=== PATIENT | male | born 1985 | race Caucasian/White ===

== ENCOUNTER 2020-02-11 06:34 | Emergency (ER) | payer OTHER, SELFPAY ==
[2020-02-11 06:38] VITALS: BP 126/83; PULSE 63; RESP 18; TEMP 36.3; O2SAT 99
--- NOTE | 2020-02-11 07:31 | ED.GENADULT ---
HPI - General Adult General Chief complaint: Unspecified Stated complaint: ST Time Seen by Provider: 02/11/20 06:58 History of Present Illness HPI narrative: Patient is a 34-year-old male who presents the ER with concerns of swelling in the back of his throat. Patient reports he awoke from sleep he was having difficulty swallowing and was coughing. He then looked in the back of his mouth and noticed that his uvula was significantly enlarged. Reports some mild sinus congestion but no postnasal drip. She has been without fever/chills/sweats, no body aches, no known sick contacts. Related Data Home Medications Medication Instructions Recorded Confirmed omeprazole 20 mg capsule,delayed 20 mg PO DAILY 08/18/19 release Allergies Allergy/AdvReac Type Severity Reaction Status Date / Time amoxicillin Allergy Unknown Unknown Verified 02/11/20 06:43 clavulanic acid Allergy Unknown Vomiting Verified 02/11/20 06:43 Review of Systems Constitutional: Constitutional: Denies chills, Denies fever(s) and Denies weakness ENT: Reports nasal congestion and Denies sore throat Comments: Uvular swelling Respiratory: Respiratory: Denies cough, Denies dyspnea and Denies wheezing PMFSH Past Medical History Medical History (Updated 02/11/20 @ 07:39 by Clifford Rivero MD) Gastro-esophageal reflux disease without esophagitis Mixed hyperlipidemia Recurrent mild major depressive disorder with anxiety (04/26/19) Surgical History Surgical History (Updated 02/11/20 @ 07:32 by Clifford Rivero MD) H/O knee surgery Family History Family History (Updated 03/02/18 @ 08:28 by DOCTOR UNKNOWN) Mother Family history of blood dyscrasia Father Family history of alcoholism Social History Social History Smoking status: Never smoker Alcohol intake: current Gender identity (if verbalized by the patient): Male Exam Narrative: Exam Narrative: GENERAL: Well-appearing, well-nourished, and in no acute distress. HEAD: Normocephalic, atraumatic. ENT: Mucous membranes moist. Slight pharyngeal erythema without tonsillar hypertrophy or exudate. Uvula midline and slightly edematous with some ruptured capillaries at the base. Lips and tongue normal. NEURO: Alert and oriented x3. PSYCH: Normal mood and affect. Course Course Emergency Course: Strep test negative. Discussed treatment with steroids x 1. D/c. Vital Signs Vital signs: Vital Signs Temperature 97.4 F L 02/11/20 06:38 Pulse Rate 63 02/11/20 06:38 Respiratory Rate 18 02/11/20 06:38 Blood Pressure 126/83 02/11/20 06:38 Pulse Oximetry 99 02/11/20 06:38 Temperature 97.4 F L 02/11/20 06:38 Pulse Rate 63 02/11/20 06:38 Respiratory Rate 18 02/11/20 06:38 Blood Pressure 126/83 02/11/20 06:38 Pulse Oximetry 99 02/11/20 06:38 Medical Decision Making Vital Signs Vital Signs: Vital Signs Temperature 97.4 F L 02/11/20 06:38 Pulse Rate 63 02/11/20 06:38 Respiratory Rate 18 02/11/20 06:38 Blood Pressure 126/83 02/11/20 06:38 Pulse Oximetry 99 02/11/20 06:38 Temperature 97.4 F L 02/11/20 06:38 Pulse Rate 63 02/11/20 06:38 Respiratory Rate 18 02/11/20 06:38 Blood Pressure 126/83 02/11/20 06:38 Pulse Oximetry 99 02/11/20 06:38 Lab Data Labs: Strep Screen Presumptive Negative *(Reference Range: Negative)* Discharge Plan Discharge Clinical Impression: Uvulitis Patient Disposition: Home, Self-Care Condition: Stable Instructions: Uvulitis (ED) Additional Instructions: Return to the ER if you have chest pain or shortness of breath, you cannot keep down food or water, you lose consciousness, you have additional concerns. Prescriptions: No Action omeprazole 20 mg capsule,delayed release(DR/EC) 20 mg PO DAILY RF: 0 sertraline 50 mg tablet 50 mg PO DAILY Qty: 90 RF: 1 clonazepam 1 mg tablet 1 mg PO BID Qty: 60 RF: 2 famotidine 40 mg
[2020-02-11 08:35] VITALS: BP 135/89; PULSE 64; RESP 16; O2SAT 98
== END 2020-02-11 08:36 | disposition home or self-care (01) ==
PROVIDERS: Emergency Provider Emergency Medicine; PCP Internal Medicine
DX: K12.2 Cellulitis and abscess of mouth (principal); K21.9 Gastro-esophageal reflux disease without esophagitis; E78.2 Mixed hyperlipidemia
CPT/HCPCS: 87081; 87880; 99283; J8540

== ENCOUNTER 2020-05-15 13:18 | Emergency (ER) | payer SELFPAY ==
[2020-05-15 14:05] VITALS: BP 128/76; PULSE 66; RESP 15; TEMP 36.6; O2SAT 99
[2020-05-15 14:27] LABS: Basophils Percent Auto 0.5 % (0.2-1.2); Eosinophils Absolute Auto 0.1 K/mm3 (0-0.3); Eosinophils Percent Auto 1.4 % (0-4.4); Hematocrit 47.3 % (42.0-52.0); Hemoglobin 16.4 g/dL (14.0-18.0); Immature Granulocyte Absolute 0.01 K/mm3 (0.00-0.031); Immature Granulocyte Percent A 0.2 % (0-0.5); Lymphocytes Absolute Auto 1.36 K/mm3 (0.9-3.2); Lymphocytes Percent Auto 21.5 % (18.3-44.2); Mean Corpuscular HGB Conc 34.7 g/dl (32-36); Mean Corpuscular Hemoglobin 30.8 pg (26-34); Mean Corpuscular Volume 88.9 fl (80-100); Mean Platelet Volume 10.7 fl (7.4-10.4); Monocytes Absolute Auto 0.4 K/mm3 (0.1-0.6); Monocytes Percent Auto 6.8 % (2.6-8.5); Neutrophils Absolute Auto 4.4 K/mm3 (1.3-6.7); Neutrophils Percent Auto 69.6 % (45.5-73.1); Platelet Count Result 237 k/mm3 (150-375); Red Blood Count 5.32 M/mm3 (4.6-6.20); Red Cell Distribution Width 12.9 % (11.5-14.5); White Blood Count 6.3 K/mm3 (4.5-10.0)
[2020-05-15] MEDS: SODIUM CHLORIDE 0.9% IV 1,000 ML 999 ML IV CONT (14:32)
[2020-05-15] MEDS: FAMOTIDINE 20 MG/2 ML VIAL IV PUSH (14:32)
[2020-05-15] MEDS: ONDANSETRON INJ 4 MG/2 ML VIAL IV PUSH (14:32)
--- NOTE | 2020-05-15 14:33 | ED.GENADULT ---
HPI - General Adult General Chief complaint: Nausea/Vomiting/Diarrhea Stated complaint: N/V/D X1D, ESQUIVEL Time Seen by Provider: 05/15/20 14:15 Source: patient Mode of arrival: ambulatory Limitations: no limitations History of Present Illness HPI narrative: Patient is a 34-year-old male who presents to emergency department for evaluation nausea vomiting diarrhea noting that his just gotten over the same symptoms patient notes subjective fever with chills and sweats states that he took his fever yesterday and did have an elevated temperature patient has not taken anything for his symptoms denies URI symptoms or other complaints and on arrival does not appear to be in any distress Related Data Home Medications Medication Instructions Recorded Confirmed omeprazole 20 mg capsule,delayed 20 mg PO DAILY 08/18/19 release Allergies Allergy/AdvReac Type Severity Reaction Status Date / Time amoxicillin Allergy Unknown Unknown Verified 02/11/20 06:43 clavulanic acid Allergy Unknown Vomiting Verified 02/11/20 06:43 Review of Systems Review of Systems: All systems reviewed & are unremarkable except as noted in HPI and below PMFSH Past Medical History Medical History Gastro-esophageal reflux disease without esophagitis Mixed hyperlipidemia Recurrent mild major depressive disorder with anxiety (04/26/19) Surgical History Surgical History H/O knee surgery Family History Family History (Updated 03/02/18 @ 08:28 by DOCTOR UNKNOWN) Mother Family history of blood dyscrasia Father Family history of alcoholism Social History Social History Smoking status: Never smoker Alcohol intake: current Gender identity (if verbalized by the patient): Male Exam Narrative: Exam Narrative: GENERAL: Well-appearing, well-nourished, and in no acute distress. HEAD: Normocephalic, atraumatic. EYES: PERRLA and EOMI. ENT: Nares clear, no rhinorrhea or epistaxis. Mucous membranes moist. Oropharynx without tonsillar hypertrophy exudate or other lesions. NECK: Supple. No adenopathy or masses. CHEST: Clear to auscultation. No respiratory distress. No wheezes rales or rhonchi HEART: Regular rate and rhythm. No murmur heard. Normal peripheral pulses. ABDOMEN: Soft, nontender, nondistended EXTREMITIES: Normal range of motion. No edema. SKIN: Warm, dry, no rash. NEURO: No focal deficits. Alert and oriented x3. PSYCH: Normal mood and affect. Course Course Emergency Course: Patient in the room at this time in no distress resting comfortably aware of case findings treatment plan and diagnosis agreeing to follow-up as directed Vital Signs Vital signs: Vital Signs Temperature 97.9 F 05/15/20 14:05 Pulse Rate 66 05/15/20 14:05 Respiratory Rate 15 05/15/20 14:05 Blood Pressure 128/76 05/15/20 14:05 Pulse Oximetry 99 05/15/20 14:05 Temperature 97.9 F 05/15/20 14:05 Pulse Rate 70 05/15/20 14:38 Respiratory Rate 15 05/15/20 14:05 Blood Pressure 138/79 05/15/20 14:38 Pulse Oximetry 99 05/15/20 14:05 Medical Decision Making [facility] Narrative Medical decision making narrative: Patient in the room at this time in no distress aware of case findings treatment plan and diagnosis agreeing to follow-up as instructed felt appropriate given the clinical presentation and improvement with medications for discharge home with outpatient therapy and follow-up Vital Signs Vital Signs: Vital Signs Temperature 97.9 F 05/15/20 14:05 Pulse Rate 66 05/15/20 14:05 Respiratory Rate 15 05/15/20 14:05 Blood Pressure 128/76 05/15/20 14:05 Pulse Oximetry 99 05/15/20 14:05 Temperature 97.9 F 05/15/20 14:05 Pulse Rate 70 05/15/20 14:38 Respiratory Rate 15 05/15/20 14:05 Blood Pressure 138/79 05/15/20 14:38 Pulse Oximetry
[2020-05-15 14:35] VITALS: BP 127/60; PULSE 60
[2020-05-15 14:36] VITALS: BP 131/76; PULSE 75
[2020-05-15 14:38] VITALS: BP 138/79; PULSE 70
[2020-05-15 14:44] LABS: Alanine Aminotransferase 36 U/L (4-50); Albumin Level 4.6 g/dL (3.5-5.1); Alkaline Phosphatase 71 U/L (38-126); Anion Gap 11 mmol/L (8-16); Aspartate Amino Transferase 29 U/L (17-59); Bilirubin,Total 0.5 mg/dL (0.2-1.3); Blood Urea Nitrogen 13 mg/dL (9-20); Calcium 9.5 mg/dL (8.4-10.2); Carbon Dioxide 23 mmol/L (22-30); Chloride 105 mmol/L (98-107); Estimated CRCL calculation 111 ml/min; Estimated Glomerular Filt Rate > 60; Glucose 93 mg/dL (75-110); Lipase 79 U/L (23-300); Potassium 3.8 mmol/L (3.4-5.0); Sodium 139 mmol/L (137-145)
[2020-05-15 14:50] LABS: Add Urine Microscopic? YES; Amorphous Sediment Urine Few; Appearance Urine Clear (Clear); Bacteria Urine Trace /hpf; Bilirubin Urine Negative (Negative); Blood Urine Negative (Negative); Color Urine Yellow (Yellow); Glucose Urine UA Negative (Negative); Ketones Urine Trace mg/dL (Negative); Leukocyte Esterase Ur Negative LEU/UL (Negative); Mucus Urine Heavy /lpf; Nitrate Urine Negative (Negative); Protein Urine Negative (Negative); RBC Urine 0-2 /hpf (0-2); Specific Grav Ur 1.026 (1.001-1.035); Squamous Epithelial Cell Urine Rare /hpf (Few); Urobilinogen Urine Negative mg/dL (<2.0); WBC Urine 0-3 /hpf
== END 2020-05-15 17:02 | disposition home or self-care (01) ==
PROVIDERS: Emergency Provider Emergency Medicine; PCP Internal Medicine
DX: R10.9 Unspecified abdominal pain (principal); K21.9 Gastro-esophageal reflux disease without esophagitis; E78.2 Mixed hyperlipidemia
CPT/HCPCS: 36415; 80053; 81001; 83690; 85025; 96361; 96374; 96375; 99284; J0131; J2405; J7030

== ENCOUNTER 2021-03-17 06:42 | Emergency (ER) | payer OTHER, SELFPAY ==
[2021-03-17] VITALS (18 sets, daily range): BP systolic 114–150; BP diastolic 73–97; PULSE 70–102; RESP 12–26; O2SAT 98
--- NOTE | ~2021-03-17 | XR_ITS ---
EXAMINATION: XR chest 1V portable DATE: 03/17/2021 08:07 INDICATION: Cough. TECHNIQUE: A single frontal view of the chest was obtained. COMPARISON: Chest 2 views 10/24/2018, CT abdomen and pelvis 08/30/2018 FINDINGS: The chest demonstrates clear lungs without pneumonia, pleural effusion, or pneumothorax. Th e heart size is normal. IMPRESSION: 1. No acute cardiopulmonary disease. Reviewed, dictated and finalized at location B.
--- NOTE | 2021-03-17 08:33 | ED.URI ---
HPI - URI/Sore Throat General Chief Complaint: Upper Respiratory Infection Stated Complaint: cough, body aches Time Seen by Provider: 03/17/21 07:48 Source: patient Mode of arrival: ambulatory Limitations: no limitations History of Present Illness HPI Narrative: Patient presents sore throat, headache, coughing, shortness of breath, body aches started yesterday at 5 PM, got worse this morning. Patient is not vaccinated for COVID-19. Patient denies any chest pain. Related Data Home Medications Medication Instructions Recorded Confirmed omeprazole 20 mg capsule,delayed 20 mg PO DAILY 08/18/19 release Allergies Allergy/AdvReac Type Severity Reaction Status Date / Time adhesive tape Allergy Rash Verified 03/17/21 06:59 amoxicillin [From Augmentin] Allergy Vomiting Verified 03/17/21 07:00 clavulanic acid Allergy Vomiting Verified 03/17/21 07:00 [From Augmentin] Review of Systems Review of Systems: CONSTITUTIONAL: Denies fever, chills, or sweats. EYES: Denies visual changes, redness, or discharge. ENT: Denies rhinorrhea, congestion, sore throat, or otalgia. CARDIOVASCULAR: Denies chest pain, palpitations, or edema. RESPIRATORY: Denies cough or dyspnea. GASTROINTESTINAL: Denies abdominal pain, nausea, vomiting, or diarrhea. GENITOURINARY: Denies dysuria or hematuria. SKIN: Denies rash or itching. MUSCULOSKELETAL: Denies back pain, joint pain, or myalgia. NEUROLOGIC: Denies headache, numbness, or weakness. PSYCHIATRIC: Denies anxiety or depression. [facility] Past Medical History Medical History Gastro-esophageal reflux disease without esophagitis Mixed hyperlipidemia Recurrent mild major depressive disorder with anxiety (04/26/19) Surgical History Surgical History H/O knee surgery Family History Family History Mother Family history of blood dyscrasia Father Family history of alcoholism Social History Social History Smoking status: Never smoker Alcohol intake: current Gender identity (if verbalized by the patient): Male Exam Narrative: General appearance: Well-developed, well-nourished Skin: Normal color Head: Normocephalic, nontraumatic Eyes: Clear conjunctiva ENT: Oropharynx normal, ears normal, nose normal Neck: Supple, nontender Chest and respiratory: Airway patent, no respiratory distress, no accessory muscle use Heart: Regular rate/rhythm Abdomen: Soft, nontender, no organomegaly, quiet bowel sounds Vascular: Normal peripheral pulses, normal capillary refill. Musculoskeletal: Normal range of motion, nontender back Neurologic: Alert and oriented ?3, GIF[employer] OFFICER is normal as tested, no gross motor deficit Course Course Emergency Course: Stable Vital Signs Vital signs: Vital Signs Pulse Rate 78 03/17/21 06:50 Respiratory Rate 21 H 03/17/21 06:50 Blood Pressure 150/93 H 03/17/21 06:50 Pulse Oximetry 98 03/17/21 06:50 Pulse Rate 80 03/17/21 08:01 Respiratory Rate 19 03/17/21 08:01 Blood Pressure 127/78 03/17/21 08:01 Pulse Oximetry 98 03/17/21 06:50 MDM - URI/Sore Throat MDM Narrative Medical decision making narrative: Upper respiratory viral infection is my concern. Chest x-ray, Covid test ordered. Chest x-ray showed no acute abnormality. Patient will be discharged, should be isolated for the next few days until he get the Covid test result. Differential Diagnosis Differential diagnosis: Likely upper respiratory infection and viral infection Lab Data Labs: Lab Results
[2021-03-17 18:30] LABS: SARS-CoV-2 RNA PCR Positive
== END 2021-03-17 09:10 | disposition home or self-care (01) ==
PROVIDERS: Emergency Provider Emergency Medicine; PCP Internal Medicine
DX: U07.1 COVID-19 (principal); J06.9 Acute upper respiratory infection, unspecified; K21.9 Gastro-esophageal reflux disease without esophagitis; E78.2 Mixed hyperlipidemia
CPT/HCPCS: 71045; 99283; C9803; U0003; U0005

== ENCOUNTER 2021-08-08 02:46 | Emergency (ER) | payer OTHER, SELFPAY ==
--- NOTE | ~2021-08-08 | XR_ITS ---
EXAMINATION: XR chest 2V EXAM DATE: 08/08/2021 03:23 INDICATION: Heart palpitations. TECHNIQUE: Frontal and lateral projections of the chest obtained and reviewed. Comparison is made to prior examination from 03/17/2021. FINDINGS: The lungs are clear. There are no pleural effusions. The cardiomediastinal silhouette is within normal limits. There is no pneumothorax suspected. The bones and soft tissues are unremarkab le. IMPRESSION: No acute cardiopulmonary findings. Reviewed, dictated and finalized at location G. [employer]OCIATE
[2021-08-08 02:50] VITALS: BP 160/78; PULSE 69; RESP 16; TEMP 37.1; O2SAT 100
--- NOTE | 2021-08-08 03:03 | ECG_ITS ---
Measurements Intervals [place] Rate: 53 P: 14 TN: 123 QRS: 9 QRSD: 96 T: 8 QT: 437 QTc: 411 Interpretive Statements SINUS BRADYCARDIA INCOMPLETE RIGHT BUNDLE BRANCH BLOCK BASELINE ARTIFACT- I, II BORDERLINE ECG Electronically Signed On 08-08-2021 6:12:56 [employer]RAFTSM[employer] by Jalen Cheek D.O.
[2021-08-08 03:36] LABS: Basophils Percent Auto 0.2 % (0.2-1.2); Eosinophils Percent Auto 0.3 % (0-4.4); Hematocrit 42.5 % (42.0-52.0); Hemoglobin 14.4 g/dL (14.0-18.0); Immature Granulocyte Absolute 0.04 K/mm3 (0.00-0.031); Immature Granulocyte Percent A 0.4 % (0-0.5); Lymphocytes Percent Auto 14.3 % (18.3-44.2); Mean Corpuscular HGB Conc 33.9 g/dl (32-36); Mean Corpuscular Hemoglobin 31.4 pg (26-34); Mean Corpuscular Volume 92.6 fl (80-100); Mean Platelet Volume 10.4 fl (7.4-10.4); Monocytes Absolute Auto 0.7 K/mm3 (0.1-0.6); Monocytes Percent Auto 7.3 % (2.6-8.5); Neutrophils Percent Auto 77.5 % (45.5-73.1); Platelet Count Result 246 k/mm3 (150-375); Red Blood Count 4.59 M/mm3 (4.6-6.20); White Blood Count 9.1 K/mm3 (4.5-10.0)
[2021-08-08] MEDS: ASPIRIN 81 MG CHEWABLE TABLET 324 MG PO (03:39)
[2021-08-08 03:46] LABS: Partial Thromboplastin Time 27.7 SECONDS (22.3-36.8); Prothrombin Time 12.8 Seconds (11.1-14.7)
[2021-08-08 03:49] LABS: Alanine Aminotransferase 33 U/L (4-50); Albumin Level 4.4 g/dL (3.5-5.1); Alkaline Phosphatase 55 U/L (38-126); Anion Gap 8 mmol/L (8-16); Aspartate Amino Transferase 34 U/L (17-59); Bilirubin,Total 0.4 mg/dL (0.2-1.3); Blood Urea Nitrogen 19 mg/dL (9-20); Calcium 9.4 mg/dL (8.4-10.2); Carbon Dioxide 25 mmol/L (22-30); Chloride 105 mmol/L (98-107); Estimated CRCL calculation 125 ml/min; Estimated Glomerular Filt Rate > 60; Glucose 129 mg/dL (65-110); Lipase 92 U/L (23-300); Potassium 3.5 mmol/L (3.4-5.0); Sodium 138 mmol/L (137-145)
[2021-08-08 04:01] LABS: Troponin I < 0.012 ng/mL (0.000-0.034)
--- NOTE | 2021-08-08 05:53 | ED.GENADULT ---
HPI - General Adult General Chief complaint: Arrhythmia/Palpitations Stated complaint: feeling weird , irregular heart rate Time Seen by Provider: 08/08/21 03:30 History of Present Illness HPI narrative: . The patient reports that he is tolerating his PTD and anxiety and recently had an upper respiratory infection patient states he was started on an albuterol inhaler a steroid taper and Phenergan cough medication. Patient states that afterwards he started to feel jittery and felt as though his heart was beating fast and occasionally felt like it was beating irregular. Patient states that he still continues to have the symptoms upon arrival to the emergency department. The patient denies syncope denies any other complaints. Related Data Home Medications Medication Instructions Recorded Confirmed omeprazole 20 mg capsule,delayed 20 mg PO DAILY 08/18/19 release Allergies Allergy/AdvReac Type Severity Reaction Status Date / Time adhesive tape Allergy Rash Verified 03/17/21 06:59 amoxicillin [From Augmentin] Allergy Vomiting Verified 03/17/21 07:00 clavulanic acid Allergy Vomiting Verified 03/17/21 07:00 [From Augmentin] Review of Systems Review of Systems: A 10 system review of systems was completed on the patient and is negative except for what is stated in the HPI. Nursing and ancillary documentation was reviewed. [facility] Past Medical History Medical History Gastro-esophageal reflux disease without esophagitis Mixed hyperlipidemia Recurrent mild major depressive disorder with anxiety (04/26/19) Surgical History Surgical History H/O knee surgery Family History Family History Mother Family history of blood dyscrasia Father Family history of alcoholism Social History Social History Smoking status: Never smoker Alcohol intake: current Gender identity (if verbalized by the patient): Male Exam Narrative: GENERAL: Well-appearing, well-nourished, and in no acute distress. HEAD: Normocephalic, atraumatic. EYES: PERRLA and EOMI. ENT: Nares clear, no rhinorrhea or epistaxis. Mucous membranes moist. NECK: Supple. CHEST: Clear to auscultation. No respiratory distress. HEART: Regular rate and rhythm. No murmur heard. Normal peripheral pulses. ABDOMEN: Soft, nontender, nondistended, normal active bowel sounds. EXTREMITIES: Normal range of motion. No edema. SKIN: Warm, dry, no rash. NEURO: No focal deficits. Alert and oriented x3. PSYCH: Normal mood and affect. Patient denies suicidal or homicidal ideation Course Course Emergency Course: Chest x-ray shows no evidence of focal infiltrate EKG is sinus bradycardia rate of [address] elevation or ST depression Vital Signs Vital signs: Vital Signs Temperature 37.1 C 08/08/21 02:50 Pulse Rate 69 08/08/21 02:50 Respiratory Rate 16 08/08/21 02:50 Blood Pressure 160/78 H 08/08/21 02:50 Pulse Oximetry 100 08/08/21 02:50 Temperature 37.1 C 08/08/21 02:50 Pulse Rate 69 08/08/21 02:50 Respiratory Rate 16 08/08/21 02:50 Blood Pressure 160/78 H 08/08/21 02:50 Pulse Oximetry 100 08/08/21 02:50 Medical Decision Making Vital Signs Vital Signs: Vital Signs Temperature 37.1 C 08/08/21 02:50 Pulse Rate 69 08/08/21 02:50 Respiratory Rate 16 08/08/21 02:50 Blood Pressure 160/78 H 08/08/21 02:50 Pulse Oximetry 100 08/08/21 02:50 Temperature 37.1 C 08/08/21 02:50 Pulse Rate 69 08/08/21 02:50 Respiratory Rate 16 08/08/21 02:50 Blood Pressure 160/78 H 08/08/21 02:50 Pulse Oximetry 100 08/08/21 02:50 Lab Data Result diagrams: 08/08/21 03:28 08/08/21 03:28 Labs: Lab Results 08/08/21 08/08/21 08/08/21
[2021-08-08 06:13] VITALS: PULSE 59; RESP 18; O2SAT 100
[2021-08-08 06:33] LABS: Troponin I < 0.012 ng/mL (0.000-0.034)
== END 2021-08-08 06:14 | disposition home or self-care (01) ==
PROVIDERS: Emergency Provider Emergency Medicine; PCP Internal Medicine
DX: R00.2 Palpitations (principal); E78.2 Mixed hyperlipidemia; K21.9 Gastro-esophageal reflux disease without esophagitis; I45.10 Unspecified right bundle-branch block; R00.1 Bradycardia, unspecified
CPT/HCPCS: 36415; 71046; 80053; 83690; 84484; 85025; 85610; 85730; 93005; 99284; A9270

== ENCOUNTER 2022-10-03 21:21 | Emergency (ER) | payer BC, SELFPAY ==
--- NOTE | 2022-10-03 21:24 | ECG_ITS ---
Measurements Intervals [place] Rate: 66 P: 15 [place]: 130 QRS: 15 QRSD: 98 T: 29 QT: 416 QTc: 437 Interpretive Statements SINUS RHYTHM INCOMPLETE RIGHT BUNDLE BRANCH BLOCK BASELINE ARTIFACT- I, II, III, AVR, AVL, AVF, V1-V6 BORDERLINE ECG COMPARED TO ECG 08/08/2021 06:07:26 SINUS RHYTHM NOW PRESENT Electronically Signed On 10-04-2022 6:39:26 [employer] by Jalen Cheek D.O.
[2022-10-03 21:25] VITALS: BP 161/86; PULSE 60; RESP 18; TEMP 36.4; O2SAT 100
[2022-10-03 21:50] LABS: Basophils Percent Auto 0.3 % (0.2-1.2); Eosinophils Absolute Auto 0.3 K/mm3 (0-0.3); Eosinophils Percent Auto 3.5 % (0-4.4); Hematocrit 43.9 % (42.0-52.0); Immature Granulocyte Absolute 0.03 K/mm3 (0.00-0.031); Immature Granulocyte Percent A 0.3 % (0-0.5); Lymphocytes Absolute Auto 1.89 K/mm3 (0.9-3.2); Lymphocytes Percent Auto 21.3 % (18.3-44.2); Mean Corpuscular HGB Conc 34.2 g/dl (32-36); Mean Corpuscular Hemoglobin 31.2 pg (26-34); Mean Corpuscular Volume 91.3 fl (80-100); Mean Platelet Volume 10.4 fl (7.4-10.4); Monocytes Absolute Auto 0.6 K/mm3 (0.1-0.6); Monocytes Percent Auto 6.5 % (2.6-8.5); Neutrophils Percent Auto 68.1 % (45.5-73.1); Platelet Count Result 280 k/mm3 (150-375); Red Blood Count 4.81 M/mm3 (4.6-6.20); Red Cell Distribution Width 13.2 % (11.5-14.5); White Blood Count 8.9 K/mm3 (4.5-10.0)
[2022-10-03 22:08] LABS: Prothrombin Time 13.1 Seconds (11.1-14.7)
[2022-10-03 22:09] LABS: Partial Thromboplastin Time 28.3 SECONDS (22.3-36.8)
[2022-10-03 22:11] LABS: Alanine Aminotransferase 39 U/L (6-50); Albumin Level 4.7 g/dL (3.5-5.1); Alkaline Phosphatase 73 U/L (38-126); Anion Gap 8 mmol/L (8-16); Aspartate Amino Transferase 31 U/L (17-59); Bilirubin,Total 0.5 mg/dL (0.2-1.3); Blood Urea Nitrogen 12 mg/dL (9-20); Carbon Dioxide 23 mmol/L (22-30); Chloride 104 mmol/L (98-107); Estimated CRCL calculation 119 ml/min; Estimated Glomerular Filt Rate > 60; Glucose 104 mg/dL (65-110); Lipase 171 U/L (23-300); Potassium 3.8 mmol/L (3.4-5.0); Sodium 135 mmol/L (137-145)
[2022-10-03 22:20] LABS: Troponin I < 0.012 ng/mL (0.000-0.034)
--- NOTE | 2022-10-03 22:59 | PC.NURSE ---
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 Patient alert and ambulatory upon leaving the ED.
== END 2022-10-03 22:59 | disposition left against medical advice (07) ==
PROVIDERS: Emergency Provider Emergency Medicine; PCP Family Medicine
DX: R07.9 Chest pain, unspecified (principal)
CPT/HCPCS: 36415; 80053; 83690; 84484; 85025; 85610; 85730; 93005; 99199

== ENCOUNTER 2023-04-01 17:00 | Emergency (ER) | payer OTHER, SELFPAY ==
--- NOTE | ~2023-04-01 | CT_ITS ---
EXAMINATION: CT thoracic spine wo con DATE: 04/01/2023 21:02 INDICATION: Mid back pain. TECHNIQUE: Computed tomography (CT) of the thoracic spine was performed without intravenous contrast. Automated exposure control and iterative reconstruction technique were employed. The dose-length pro duct was 1475.15 mGy-cm. COMPARISON: Chest 2 views 08/08/21 FINDINGS: There is a small sliding hiatal hernia. There is kyphosis of thoracic spine. There is mild chronic anterior wedging of T5-T8 vertebral bodies. There is mildly decreased disc height at T7-T8. T here is multilevel mild facet joint osteoarthritis. No neural foraminal stenosis. There is mild centr al canal stenosis at T7-T8 and T8-T9. IMPRESSION: 1. Mild thoracic spondylosis. Reviewed, dictated and finalized at location E.
--- NOTE | ~2023-04-01 | CT_ITS ---
EXAMINATION: CT abd pelvis lumbar w con DATE: 04/01/2023 21:03 INDICATION: Right abdominal pain. Back pain. TECHNIQUE: Computed tomography (CT) of the abdomen and pelvis and lumbar spine was performed with 100 mL Omnipaque 350 intravenous contrast. Automated exposure control and iterative reconstruction techn ique were employed. The dose-length product was 1379.64 mGy-cm. COMPARISON: CT abdomen and pelvis 08/30/2018 FINDINGS: CT ABDOMEN AND PELVIS: The visualized portions of the lung bases demonstrate minimal atelectasis. No pleural effusion. The heart size is normal. No pericardial effusion. There is a small sliding hiatal hernia. There is a 6 mm cyst in the liver. The gallbladder, spleen, pancreas, adrenal glands, and kid neys are normal. There are no dilated loops of bowel. The appendix is normal. There is a left inguina l hernia containing fat. CT LUMBAR SPINE: Bone alignment is normal. Vertebral body heights are normal. There is mildly decreas ed disc height at L5-S1. The following disc levels are specifically discussed: L1-L2: The disc does not extend beyond the endplate margin. There is mild bilateral facet joint osteo arthritis. There is no neural foraminal stenosis. There is no central canal stenosis. L2-L3: The disc does not extend beyond the endplate margin. There is mild right facet joint osteoarth ritis. There is no neural foraminal stenosis. There is no central canal stenosis. L3-L4: The disc is mildly bulging. There is moderate right and mild left facet joint osteoarthritis. There is no neural foraminal stenosis. There is mild central canal stenosis. L4-L5: The disc is bulging. There is moderate bilateral facet joint osteoarthritis. There is mild bipin ateral neural foraminal stenosis. There is mild central canal stenosis. L5-S1: The disc is bulging. There is mild bilateral facet joint osteoarthritis. There is mild bilater al neural foraminal stenosis. There is mild central canal stenosis. IMPRESSION: 1. Small sliding hiatal hernia. 2. Mild lumbar spondylosis. Reviewed, dictated and finalized at location E.
[2023-04-01 17:02] VITALS: BP 157/87; PULSE 70; RESP 20; TEMP 36.3; O2SAT 98
--- NOTE | 2023-04-01 20:05 | ED.BACK ---
HPI - Back Pain/Injury General Chief Complaint: Back Pain/Injury Stated Complaint: back pain Time Seen by Provider: 04/01/23 19:47 History of Present Illness HPI Narrative: Patient is a 37-year-old male with a history of anxiety, GERD, depression presenting with back pain. Patient states that he was moving a heavy dresser about 5 days ago and shortly after this one of his dogs ran into him and made him fall. States that he had some back discomfort following this but it did not become exquisitely painful until 2-3 nights ago. States that he is almost unable to even change positions because it hurts so bad. States that it is in his mid back somewhat to the right side and sometimes radiates into his abdomen. No numbness or weakness, bladder or bowel incontinence, saddle anesthesia, fevers. Denies nausea or vomiting, diarrhea, dysuria, hematuria. Denies further complaints. Related Data Home Medications Medication Instructions Recorded Confirmed omeprazole 20 mg capsule,delayed 20 mg PO DAILY 08/18/19 release Allergies Allergy/AdvReac Type Severity Reaction Status Date / Time adhesive tape Allergy Rash Verified 04/01/23 19:31 amoxicillin [From Augmentin] Allergy Vomiting Verified 04/01/23 19:31 clavulanic acid Allergy Vomiting Verified 04/01/23 19:31 [From Augmentin] Review of Systems Review of Systems: All systems reviewed & are unremarkable except as noted in HPI and below PMFSH Past Medical History Medical History Gastro-esophageal reflux disease without esophagitis Mixed hyperlipidemia Recurrent mild major depressive disorder with anxiety (04/26/19) Surgical History Surgical History H/O knee surgery Family History Family History Mother Family history of blood dyscrasia Father Family history of alcoholism Social History Social History Smoking status: Never smoker Alcohol intake: current Gender identity (if verbalized by the patient): Male Exam Narrative: GENERAL: Well-appearing, appears very uncomfortable with positional changes HEAD: Normocephalic, atraumatic. EYES: PERRLA and EOMI. ENT: Nares clear, no rhinorrhea or epistaxis. Mucous membranes moist. NECK: Supple. CHEST: Clear to auscultation. No respiratory distress. HEART: Regular rate and rhythm. No murmur heard. ABDOMEN: Soft, + mild right upper quadrant tenderness without guarding or rebound BACK: Midline tenderness of upper lumbar spine that radiates into his right flank/buttock EXTREMITIES: Normal range of motion. No edema. SKIN: Warm, dry, no rash. NEURO: No focal deficits. Alert and oriented x3. PSYCH: Normal mood and affect. Course Vital Signs Vital signs: Vital Signs Temperature 97.4 F L 04/01/23 17:02 Pulse Rate 70 04/01/23 17:02 Respiratory Rate 20 04/01/23 17:02 Blood Pressure 157/87 H 04/01/23 17:02 Pulse Oximetry 98 04/01/23 17:02 Oxygen Delivery Room Air 04/01/23 17:02 Temperature 97.7 F 04/01/23 23:10 Pulse Rate 57 L 04/01/23 23:10 Respiratory Rate 20 04/01/23 17:02 Blood Pressure 121/78 04/01/23 23:10 Pulse Oximetry 99 04/01/23 23:10 Oxygen Delivery Room Air 04/01/23 17:02 MDM - Back Pain/Injury MDM Narrative Medical decision making narrative: Patient is a 37-year-old male presenting with back and abdominal pain. Vitals are stable. Exam remarkable for the above. Plan for blood work, UA, CT abdomen pelvis with thoracic and lumbar spine. Blood work is unremarkable. UA is unremarkable. Imaging shows no acute abnormalities. There is evidence of thoracic and lumbar spondylosis as well as several bulging disks. On reevaluation, patient is resting comfortably. States that his pain has significantly improved. Discussed the reassur
[2023-04-01] MEDS: HYDROmorphone HCL INJ (*CRX) 1 MG/ML SYR 0.5 MG IV PUSH (20:25)
[2023-04-01] MEDS: SODIUM CHLORIDE 0.9% IV 1,000 ML 999 ML IV CONT (20:25)
[2023-04-01] MEDS: KETOROLAC 15 MG/ML VIAL (*BKC) IV PUSH (20:26)
[2023-04-01 20:28] LABS: Basophils Percent Auto 0.3 % (0.2-1.2); Eosinophils Absolute Auto 0.3 K/mm3 (0-0.3); Eosinophils Percent Auto 3.2 % (0-4.4); Hematocrit 45.4 % (42.0-52.0); Hemoglobin 15.6 g/dL (14.0-18.0); Immature Granulocyte Absolute 0.02 K/mm3 (0.00-0.031); Immature Granulocyte Percent A 0.3 % (0-0.5); Lymphocytes Absolute Auto 1.66 K/mm3 (0.9-3.2); Lymphocytes Percent Auto 21.4 % (18.3-44.2); Mean Corpuscular HGB Conc 34.4 g/dl (32-36); Mean Corpuscular Volume 90.1 fl (80-100); Mean Platelet Volume 10.6 fl (7.4-10.4); Monocytes Absolute Auto 0.5 K/mm3 (0.1-0.6); Monocytes Percent Auto 6.8 % (2.6-8.5); Neutrophils Absolute Auto 5.3 K/mm3 (1.3-6.7); Platelet Count Result 250 k/mm3 (150-375); Red Blood Count 5.04 M/mm3 (4.6-6.20); Red Cell Distribution Width 13.1 % (11.5-14.5); White Blood Count 7.8 K/mm3 (4.5-10.0)
[2023-04-01 20:43] LABS: Alanine Aminotransferase 44 U/L (6-50); Albumin Level 4.5 g/dL (3.5-5.1); Alkaline Phosphatase 57 U/L (38-126); Anion Gap 10 mmol/L (8-16); Aspartate Amino Transferase 36 U/L (17-59); Bilirubin,Total 0.5 mg/dL (0.2-1.3); Blood Urea Nitrogen 12 mg/dL (9-20); Calcium 9.1 mg/dL (8.4-10.2); Carbon Dioxide 24 mmol/L (22-30); Chloride 104 mmol/L (98-107); Estimated CRCL calculation 125 ml/min; Estimated Glomerular Filt Rate > 60; Glucose 88 mg/dL (65-110); Lipase 123 U/L (23-300); Potassium 4.1 mmol/L (3.4-5.0); Sodium 138 mmol/L (137-145)
[2023-04-01 20:55] LABS: Appearance Urine Clear (Clear); Bilirubin Urine Negative (Negative); Blood Urine Negative (Negative); Color Urine Yellow (Yellow); Glucose Urine UA Negative (Negative); Ketones Urine Negative (Negative); Leukocyte Esterase Ur Negative LEU/UL (Negative); Nitrate Urine Negative (Negative); Protein Urine Negative (Negative); Urobilinogen Urine 0.2 mg/dL (<2.0); pH Urine 5.5 (5.0-9.0)
[2023-04-01 21:05] LABS: Add Urine Microscopic? NO
[2023-04-01] MEDS: predniSONE 20 MG TABLET 40 MG PO (22:59)
[2023-04-01 23:10] VITALS: BP 121/78; PULSE 57; TEMP 36.5; O2SAT 99
== END 2023-04-01 23:18 | disposition home or self-care (01) ==
PROVIDERS: Emergency Provider Emergency Medicine; PCP Family Medicine
DX: S39.012A Strain of muscle, fascia and tendon of lower back, initial encounter (principal); M47.26 Other spondylosis with radiculopathy, lumbar region; K21.9 Gastro-esophageal reflux disease without esophagitis; E78.2 Mixed hyperlipidemia; F41.8 Other specified anxiety disorders; M47.814 Spondylosis without myelopathy or radiculopathy, thoracic region; K44.9 Diaphragmatic hernia without obstruction or gangrene; W54.1XXA Struck by dog, initial encounter
CPT/HCPCS: 36415; 72128; 72132; 74177; 80053; 81003; 83690; 85025; 96361; 96374; 96375; 99284; J1170; J1885; J7030; J7512; Q9967

== ENCOUNTER 2023-04-23 15:08 | Emergency (ER) | payer OTHER, SELFPAY ==
[2023-04-23] VITALS (10 sets, daily range): BP systolic 108–132; BP diastolic 75–87; PULSE 59–71; RESP 16–18; TEMP 36.9; O2SAT 95–100
--- NOTE | ~2023-04-23 | XR_ITS ---
EXAMINATION: XR chest 1V portable INDICATION: Chest and abdominal pain TECHNIQUE: Portable AP chest at 1532 hours COMPARISON: 08/08/2021 FINDINGS: The lungs are free of acute opacities. No pleural effusion or pneumothorax. The cardiomedia stinal silhouette is normal. IMPRESSION: 1. No acute cardiopulmonary abnormality. Reviewed, dictated and finalized at location B.
--- NOTE | 2023-04-23 15:15 | ECG_ITS ---
Measurements Intervals [place] Rate: 75 P: 23 [place]: 154 QRS: 6 QRSD: 100 T: 12 QT: 391 QTc: 437 Interpretive Statements SINUS RHYTHM CONSIDER INFERIOR INFARCT, AGE INDETERMINATE ABNORMAL ECG COMPARED TO ECG 10/03/2022 21:34:19 MYOCARDIAL INFARCT FINDING NOW PRESENT Electronically Signed On 04-23-2023 15:39:23 CDT by Jalen Cheek D.O.
[2023-04-23 15:35] LABS: Hematocrit 42.8 % (40.0-54.0); Hemoglobin 14.7 g/dL (14.0-18.0); Mean Corpuscular HGB Conc 34.3 g/dL (32.0-36.0); Mean Corpuscular Hemoglobin 30.8 pg (27.0-31.0); Mean Corpuscular Volume 89.5 fL (78.0-102.0); Mean Platelet Volume 10.2 fl (8.7-11.0); Platelet Count Result 242 K/mm3 (150-420); Red Blood Count 4.78 M/mm3 (4.70-6.10); Red Cell Distribution Width 12.8 % (11.6-14.4); White Blood Count 6.9 K/mm3 (4.8-10.8)
[2023-04-23 15:48] LABS: D Dimer 0.19 mg/L (0.19-0.50); Partial Thromboplastin Time 27.1 SEC (23.90-30.70); Prothrombin Time 10.8 Seconds (9.50-12.10)
--- NOTE | 2023-04-23 15:55 | PC.NURSE ---
erp at bedside of initial assessment
[2023-04-23 16:04] LABS: Amphetamine Screen Urine Negative (Negative); Barbiturate Screen Urine Negative (Negative); Benzodiazepines Screen Urine Negative (Negative); Cannabinoid Screen Urine Negative (Negative); Cocaine Screen Urine Negative (Negative); Methadone Screen Urine Negative (Negative); Opiate Screen Urine Negative (Negative); Phencyclidine Screen Urine Negative (Negative)
[2023-04-23 16:06] LABS: Alanine Aminotransferase 41 U/L (16-63); Alkaline Phosphatase 58 U/L (46-116); Anion Gap 13 mmol/L (8-16); Aspartate Amino Transferase 16 U/L (15-37); Bilirubin,Total 0.4 mg/dL (0.00-1.00); Blood Urea Nitrogen 13 mg/dL (7-18); Calcium 9.7 mg/dL (8.5-10.1); Carbon Dioxide 23 mmol/L (21-32); Chloride 104 mmol/L (98-108); Estimated Glomerular Filt Rate > 60; Glucose 94 mg/dL (70-99); Magnesium 2.2 mg/dL (1.8-2.4); Osmolality Calculated 290 mOsm/kg (285-295); Potassium 3.5 mmol/L (3.5-5.1); Sodium 140 mmol/L (136-145); Total Protein 7.5 g/dL (6.4-8.2)
[2023-04-23 16:07] LABS: Ethanol < 3 mg/dL (0-6); Troponin I < 4.0 ng/L (0.00-60.4)
--- NOTE | 2023-04-23 16:07 | ED.CHESTPAIN ---
HPI - Chest Pain General Chief Complaint: Chest Pain Stated Complaint: sore throat Time Seen by Provider: 04/23/23 15:18 Source: patient Mode of arrival: ambulatory Limitations: no limitations History of Present Illness HPI narrative: patient is a 37-year-old white male said he has been up for the last 22 hours he has been tired is driving from [place] starting at 11:15 a.m. today to [facility] where he lives. Said he felt his tongue started to swell is glands felt tender in his throat he knows the yellow spot on left side of his tongue which is uncomfortable. About 45 minutes ago he started having difficulty breathing and swallowing and sharp achy chest pain especially with deep breath his pain was at its worse was a 7/10 and here in the emergency was 6 to 7/10. Is better if he laid back worse if he laid forward. Is also having some abdominal cramping and then he started having tunnel vision felt lightheaded and pulled over and the exit to come to this emergency department. He worked from 8:00 p.m. yesterday to 9:45 a.m. and then went to the hotel and then started for home. Two days ago he had a little bit of diarrhea loose watery nonbloody stools today it is just a little loose. denies any other complaints. Event a lot of people sick where he works. Denies any rash or itching bleeding or bruising lumps or bumps or swelling anywhere fever. He last ate at 10:15 a.m. no problems voiding. Past medical history: Posttraumatic stress disorder 10 years ago diagnose he has been doing very well and has been gradually able to decrease his medications he has got a good psychiatrist and therapist. He is net had any issues with his posttraumatic stress disorder for 3 years. Does not think this is part of that illness. He has history of GERD seasonal allergies past surgical history:he has had bilateral ACL repairs Allergies: Augmentin causes vomiting Related Data Home Medications Medication Instructions Recorded Confirmed omeprazole 20 mg capsule,delayed 20 mg PO DAILY 08/18/19 04/23/23 release Allergies Allergy/AdvReac Type Severity Reaction Status Date / Time adhesive tape Allergy Rash Verified 04/23/23 15:42 amoxicillin [From Augmentin] Allergy Vomiting Verified 04/23/23 15:42 clavulanic acid Allergy Vomiting Verified 04/23/23 15:42 [From Augmentin] Review of Systems Review of Systems: All systems reviewed & are unremarkable except as noted in HPI and below PMFSH Past Medical History Medical History Gastro-esophageal reflux disease without esophagitis Mixed hyperlipidemia Recurrent mild major depressive disorder with anxiety (04/26/19) Surgical History Surgical History H/O knee surgery Family History Family History Mother Family history of blood dyscrasia Father Family history of alcoholism Social History Social History Smoking status: Never smoker Alcohol intake: current Gender identity (if verbalized by the patient): Male Exam Narrative: White Male patient no apparent distress.? Head normocephalic, atraumatic.? Eyes conjunctiva pink sclera nonicteric.? Extraocular movements are intact.? Ears externally normal.? TMs normal Oropharynx is clear with moist mucous membranes without exudates.? tongue: No swelling he has a little irregularity the left side of his tongue looks like he bit his tongue. posterior pharynx is normal without exudates or erythema or swelling. There is no bleeding. Neck is supple Mild tender anterior lymphadenopathy.? Back is nontender.? Lungs are clear.? Heart is regular rate and rhythm without murmurs gallops or rubs.? Chest wall is nontender.? Abdomen is soft and nontender no hepatosplenomegaly or masses no CVA tenderness no abdo
[2023-04-23] MEDS: ACETAMINOPHEN 500 MG TABLET 1000 MG PO (16:16)
[2023-04-23 16:55] LABS: Strep Group A RT-PCR NOT DETECTED (Negative)
[2023-04-23 17:04] LABS: Influenza A QL RT-PCR Negative (Negative); Influenza B QL RT-PCR Negative (Negative); SARS-CoV-2 RNA PCR Negative (Negative)
[2023-04-23 17:05] LABS: RSV RNA, RT-PCR Negative (Negative)
[2023-04-23 18:03] LABS: Troponin I < 4.0 ng/L (0.00-60.4)
== END 2023-04-23 18:32 | disposition home or self-care (01) ==
PROVIDERS: Emergency Provider Emergency Medicine
DX: R07.89 Other chest pain (principal); R06.00 Dyspnea, unspecified; E78.2 Mixed hyperlipidemia; Z20.822 Contact with and (suspected) exposure to COVID-19; Z79.899 Other long term (current) drug therapy
CPT/HCPCS: 36415; 71045; 80053; 80307; 83605; 83735; 84484; 85027; 85380; 85610; 85730; 87637; 87651; 93005; 99284

== ENCOUNTER 2023-11-04 02:34 | Emergency (ER) | payer OTHER, SELFPAY ==
[2023-11-04 02:38] VITALS: BP 118/77; PULSE 102; RESP 15; TEMP 36.6; O2SAT 100
[2023-11-04 03:01] LABS: Basophils Percent Auto 0.1 % (0.2-1.2); Hematocrit 49.2 % (42.0-52.0); Hemoglobin 16.9 g/dL (14.0-18.0); Immature Granulocyte Absolute 0.04 K/mm3 (0.00-0.031); Immature Granulocyte Percent A 0.4 % (0-0.5); Lymphocytes Absolute Auto 0.47 K/mm3 (0.9-3.2); Lymphocytes Percent Auto 5.3 % (18.3-44.2); Mean Corpuscular HGB Conc 34.3 g/dl (32-36); Mean Corpuscular Hemoglobin 30.5 pg (26-34); Mean Corpuscular Volume 88.8 fl (80-100); Mean Platelet Volume 10.9 fl (7.4-10.4); Monocytes Absolute Auto 0.6 K/mm3 (0.1-0.6); Monocytes Percent Auto 6.4 % (2.6-8.5); Neutrophils Absolute Auto 7.8 K/mm3 (1.3-6.7); Neutrophils Percent Auto 87.8 % (45.5-73.1); Platelet Count Result 243 k/mm3 (150-375); Red Blood Count 5.54 M/mm3 (4.6-6.20); Red Cell Distribution Width 13.5 % (11.5-14.5); White Blood Count 8.9 K/mm3 (4.5-10.0)
[2023-11-04 03:17] LABS: Alanine Aminotransferase 33 U/L (6-50); Albumin Level 4.8 g/dL (3.5-5.1); Alkaline Phosphatase 60 U/L (38-126); Anion Gap 11 mmol/L (4-12); Aspartate Amino Transferase 28 U/L (17-59); Bilirubin,Total 1.1 mg/dL (0.2-1.3); Blood Urea Nitrogen 27 mg/dL (9-20); Calcium 9.7 mg/dL (8.4-10.2); Carbon Dioxide 23 mmol/L (22-30); Chloride 103 mmol/L (98-107); Estimated CRCL calculation 70 ml/min; Estimated Glomerular Filt Rate 49; Glucose 120 mg/dL (65-110); Lipase 62 U/L (23-300); Potassium 3.6 mmol/L (3.4-5.0); Sodium 137 mmol/L (137-145)
[2023-11-04] MEDS: ONDANSETRON INJ 4 MG/2 ML VIAL IV PUSH (03:28)
[2023-11-04] MEDS: SODIUM CHLORIDE 0.9% IV 1,000 ML 999 ML IV CONT ×2 (03:28→04:01)
[2023-11-04 03:36] LABS: Influenza A QL RT-PCR Negative (Negative); Influenza B QL RT-PCR Negative (Negative); RSV RNA, RT-PCR Negative (Negative); SARS-CoV-2 RNA PCR Negative (Negative)
--- NOTE | 2023-11-04 03:41 | ED.GENADULT ---
HPI - General Adult General Chief complaint: Nausea/Vomiting/Diarrhea Stated complaint: n/v/d, abdominal cramps, bodyaches Time Seen by Provider: 11/04/23 03:23 History of Present Illness HPI narrative: Patient is a 38-year-old male who presents the emergency department this morning complaining of nausea, vomiting and diarrhea. Patient states that symptoms started approximately 24 hours ago. Patient also states that his had similar symptoms last week and is getting over whenever he now has. They deny any exposure to sick contacts but admitted that they were are large family gathering for [employer] this past Wednesday. Patient currently denies any severe abdominal pain, states that he only has some mild cramping, denies any urinary symptoms including dysuria or hematuria. Patient denies any fevers or chills at home. There are no other modifying, alleviating, or precipitating factors. Related Data Home Medications Medication Instructions Recorded Confirmed omeprazole 20 mg capsule,delayed 20 mg PO DAILY 08/18/19 04/23/23 release Allergies Allergy/AdvReac Type Severity Reaction Status Date / Time adhesive tape Allergy Rash Verified 04/23/23 15:42 amoxicillin [From Augmentin] Allergy Vomiting Verified 04/23/23 15:42 clavulanic acid Allergy Vomiting Verified 04/23/23 15:42 [From Augmentin] Review of Systems Review of Systems: All systems are reviewed and are negative unless stated otherwise in the HPI. COUNTS INCLUDE 234 BEDS AT THE [facility] Past Medical History Medical History Gastro-esophageal reflux disease without esophagitis Mixed hyperlipidemia Recurrent mild major depressive disorder with anxiety (04/26/19) Surgical History Surgical History H/O knee surgery Family History Family History Mother Family history of blood dyscrasia Father Family history of alcoholism Social History Social History Smoking status: Never smoker Alcohol intake: current Gender identity (if verbalized by the patient): Male Exam Narrative: General: Alert, awake, afebrile, in no acute distress. HEENT: PERRL, no rhinorrhea, no post nasal drip, oropharynx clear. Neck: Trachea midline, no JVD, no lymphadenopathy. Cardiovascular: Regular rate and rhythm, no murmurs, rubs or gallops, no peripheral edema. Respiratory: Clear to auscultation bilaterally, no tachypnea, no wheezing, no rhonchi, no rubs, no respiratory distress. Abdomen: Soft, nontender, nondistended, no rebound, no guarding, no peritoneal signs. Musculoskeletal: No joint swelling or deformity, normal muscle tone. Skin: No rashes or petechia, no signs of infection. Psychiatric: Alert and oriented, normal behavior and judgment for situation. Neurological: Alert and oriented to person, place, and time. Follows all commands. No focal deficits, speech is clear and fluent. Course Vital Signs Vital signs: Vital Signs Temperature 97.8 F 11/04/23 02:38 Pulse Rate 102 H 11/04/23 02:38 Respiratory Rate 15 11/04/23 02:38 Blood Pressure 118/77 11/04/23 02:38 Pulse Oximetry 100 11/04/23 02:38 Oxygen Delivery Room Air 11/04/23 02:38 Temperature 97.8 F 11/04/23 02:38 Pulse Rate 68 11/04/23 05:45 Respiratory Rate 16 11/04/23 05:45 Blood Pressure 118/98 H 11/04/23 05:45 Pulse Oximetry 96 11/04/23 05:45 Oxygen Delivery Room Air 11/04/23 02:38 Medical Decision Making MDM Narrative Medical decision making narrative: The patient was evaluated by myself in the emergency department. History is obtained from patient who is an independent historian and physical exam was performed. External medical records were reviewed at this time. IV was established and pertinent tests were ordered. Patient was administered 1 L IV fluid bolu
[2023-11-04] MEDS: MORPHINE SULFATE (*CRX) 2 MG/ML INJ IV PUSH (03:44)
[2023-11-04 03:50] LABS: Appearance Urine Cloudy (Clear); Bacteria Urine None Seen /hpf; Bilirubin Urine 2+ (Negative); Blood Urine Negative (Negative); Color Urine Dark Yellow (Yellow); Glucose Urine UA Negative (Negative); Hyaline Casts Urine Present /lpf; Ketones Urine 1+ mg/dL (Negative); Leukocyte Esterase Ur Trace LEU/UL (Negative); Mucus Urine Present /lpf; Need Manual Microscopic Reviewed; Nitrate Urine Negative (Negative); Non Pathogenic Casts >20; Protein Urine 2+ mg/dL (Negative); Specific Grav Ur 1.042 (1.001-1.035); Squamous Epithelial Cell Urine Moderate /hpf (Few); WBC Urine 0-5 /hpf (0-3)
[2023-11-04 03:51] LABS: Add Urine Microscopic? YES
[2023-11-04 05:45] VITALS: BP 118/98; PULSE 68; RESP 16; O2SAT 96
== END 2023-11-04 05:48 | disposition home or self-care (01) ==
PROVIDERS: Physician Assistant; Emergency Provider Emergency Medicine
DX: N17.9 Acute kidney failure, unspecified (principal); R11.2 Nausea with vomiting, unspecified; R19.7 Diarrhea, unspecified; Z20.822 Contact with and (suspected) exposure to COVID-19; E78.2 Mixed hyperlipidemia; K21.9 Gastro-esophageal reflux disease without esophagitis
CPT/HCPCS: 36415; 80053; 81001; 83690; 85025; 87637; 96361; 96374; 96375; 99284; J2270; J2405; J7030